=== PATIENT | male | born 1960 | race Two or more races ===

== ENCOUNTER 2017-03-08 23:12 | Emergency (ER) | payer SELFPAY ==
[2017-03-08 23:32] VITALS: RESP 16
--- NOTE | 2017-03-09 00:16 | ED PDOC ---
HPI: Psych/Substance Abuse Time Seen by Provider: 03/08/17 23:24 Chief Complaint (Nursing): Alcohol Ingestion Chief Complaint (Provider): Denies complaints - Brought by EMS for ETOh abuse History Per: Patient, EMS History/Exam Limitations: no limitations Onset/Duration Of Symptoms: Unknown Current Symptoms Are (Timing): Still Present Modifying Factor(s): Alcohol Additional Complaint(s): Pt denies complaints. Has slurred speech and states he wants to go homes. Denies head injury however large abrasion and swelling right forehead. Past Medical History Reviewed: Historical Data, Nursing Documentation, Vital Signs Vital Signs: Last Vital Signs Temp 98.0 F 03/08/17 23:30 Pulse 89 03/08/17 23:30 Resp 16 03/08/17 23:30 BP 139/81 03/08/17 23:30 Pulse Ox 97 03/08/17 23:30 - Medical History PMH: No Chronic Diseases - Surgical History Surgical History: No Surg Hx - Family History Family History: States: Unknown Family Hx - Living Arrangements Living Arrangements: With Family - Social History Current smoker - smoking cessation education provided: No Alcohol: Occasional Drugs: Denies - Allergies Allergies/Adverse Reactions: Allergies Allergy/AdvReac Type Severity Reaction Status Date / Time No Known Allergies Allergy Verified 03/08/17 23:32 Review of Systems ROS Statement: Except As Marked, All Systems Reviewed And Found Negative Skin: Positive for: Other Physical Exam - Reviewed Nursing Documentation Reviewed: Yes Vital Signs Reviewed: Yes - Physical Exam Appears: Positive for: Well, Non-toxic, No Acute Distress Head Exam: Positive for: ATRAUMATIC, NORMAL INSPECTION, NORMOCEPHALIC Skin: Positive for: Normal Color, Warm, DRY Eye Exam: Positive for: Normal appearance ENT: Positive for: Normal ENT Inspection Neck: Positive for: Normal, Painless ROM Cardiovascular/Chest: Positive for: Regular Rate, Rhythm Respiratory: Positive for: CNT, Normal Breath Sounds Gastrointestinal/Abdominal: Positive for: Normal Exam, Bowel Sounds, Soft Back: Positive for: Normal Inspection Extremity: Positive for: Normal ROM Neurologic/Psych: Positive for: Alert, Oriented - Laboratory Results Result Diagrams: 03/09/17 00:35 03/09/17 00:35 - ECG O2 Sat by Pulse Oximetry: 97 Medical Decision Making Medical Decision Making: Elevated wbc. Head CT normal. Disposition - Clinical Impression Clinical Impression: Alcohol abuse with intoxication - Patient ED Disposition Is Patient to be Admitted: Transfer of Care - Disposition Referrals: [facility] [Outside] Disposition: Transfer of Care Disposition Time: 06:03 Condition: GOOD
[2017-03-09 00:45] LABS: HEMATOCRIT 41.5 % (35.0-51.0); MEAN CELL VOLUME 94.1 fl (80.0-94.0); MEAN CORPUSCULAR HEMOGLOBIN 31.6 pg (27.0-31.0); MEAN CORPUSCULAR HGB CONC 33.6 g/dL (33.0-37.0); RED CELL DISTRIBUTION WIDTH 15.2 % (11.5-14.5); WHITE BLOOD COUNT 10.6 K/uL (4.8-10.8)
[2017-03-09 00:56] LABS: ALB/GLOB RATIO 1.4 (1.0-2.1); ALKALINE PHOSPHATASE 72 U/L (38-126); ALT/SGPT 42 U/L (21-72); AST/SGOT 43 U/L (17-59); BILIRUBIN,TOTAL 0.4 mg/dl (0.2-1.3); BLOOD UREA NITROGEN 8 mg/dl (9-20); CARBON DIOXIDE 20 mmol/L (22-30); CHLORIDE 110 mmol/L (98-107); GFR AFRICAN-AMERICAN > 60; GLUCOSE,RANDOM 97 mg/dL (75-110); POTASSIUM 3.8 MMOL/L (3.6-5.0); SODIUM 143 mmol/l (132-148); TOTAL PROTEIN 7.4 G/DL (6.3-8.2)
[2017-03-09 01:07] LABS: ALCOHOL SERUM 325 mg/dl (0-10)
--- NOTE | 2017-03-09 02:49 | CT ---
EXAM: CT Head Without Intravenous Contrast CLINICAL HISTORY: 56 years old, male; Pain; Other: ETOH; Additional info: Head injury, ETOH TECHNIQUE: Axial computed tomography images of the head/brain without intravenous contrast. This CT exam was performed using one or more of the following dose reduction techniques: automated exposure control, adjustment of the mA and/or kV according to patient size, and/or use of iterative reconstruction technique. Coronal and sagittal reformatted images were created and reviewed. COMPARISON: No relevant prior studies available. FINDINGS: Brain: Mild atrophy. No intracranial hemorrhage. No mass. No edema. Ventricles: No hydrocephalus. Bones/joints: No acute fracture. Soft tissues: RIGHT frontal soft tissue swelling. Sinuses: Mild mucosal thickening of RIGHT frontal sinus. Minimal mucosal thickening of LEFT ethmoid sinus. Mastoid air cells: No mastoid effusion. Orbits: Unremarkable as visualized. IMPRESSION: 1. No intracranial hemorrhage. 2. Incidental/non-acute findings are described above.
--- NOTE | 2017-03-09 06:20 | ED PDOC ---
- Laboratory Results Result Diagrams: 03/09/17 00:35 03/09/17 00:35 - ECG O2 Sat by Pulse Oximetry: 97 Medical Decision Making Medical Decision Makin: Pt. trasnferred to me by NORBERTO Sauceda. 0700: Patient is being transfered to Dr. Plaza pending sobriety. Scribe Attestation: Documented by Alexandra Londono acting as a scribe for Migue Wyatt MD. Provider Scribe Attestation: All medical record entries made by the Scribe were at my direction and personally dictated by me. I have reviewed the chart and agree that the record accurately reflects my personal performance of the history, physical exam, medical decision making, and the department course for this patient. I have also personally directed, reviewed, and agree with the discharge instructions and disposition. Disposition - Clinical Impression Clinical Impression: Alcohol abuse with intoxication - POA Present On Arrival: None - Disposition Referrals: [facility] [Outside] Disposition: Transfer of Care Disposition Time: 07:00 Condition: GOOD Patient Signed Over To: Pablo Plaza
[2017-03-09 06:41] VITALS: BP 131/71; PULSE 87; TEMP 98.1; O2SAT 96
--- NOTE | 2017-03-09 07:10 | ED PDOC ---
- Laboratory Results Result Diagrams: 03/09/17 00:35 03/09/17 00:35 - ECG O2 Sat by Pulse Oximetry: 96 (RA) Pulse Ox Interpretation: Normal Medical Decision Making Medical Decision Makin:00 Patient was signed out to me by Migue Wyatt MD pending clinical sobriety. Scribe Attestation: Documented by Isabel Chong, acting as a scribe for Pablo Plaza MD. Provider Scribe Attestation: All medical record entries made by the Scribe were at my direction and personally dictated by me. I have reviewed the chart and agree that the record accurately reflects my personal performance of the history, physical exam, medical decision making, and the department course for this patient. I have also personally directed, reviewed, and agree with the discharge instructions and disposition. Disposition - Clinical Impression Clinical Impression: Alcohol abuse with intoxication - POA Present On Arrival: None - Disposition Referrals: [facility] [Outside] Disposition: Routine/Home Disposition Time: 07:15 Condition: GOOD Instructions: Alcohol Intoxication (ED)
== END 2017-03-09 07:15 | disposition home or self-care (01) ==
LOC: H.ER 23:12 → EDBD 23:12 → H.ER 03-09 07:15
DX: F10.129 Alcohol abuse with intoxication, unspecified (principal); S00.81XA Abrasion of other part of head, initial encounter; W19.XXXA Unspecified fall, initial encounter; Y92.89 Other specified places as the place of occurrence of the external cause
CPT/HCPCS: 70450; 80053; 85027; 96372; 99283; G0480; J1630; J2060

== ENCOUNTER 2017-07-15 09:26 | Emergency (ER) | payer MEDICARE, OTHER ==
[2017-07-15 09:48] VITALS: BP 158/88; PULSE 92; RESP 19; TEMP 97; O2SAT 99
--- NOTE | 2017-07-15 10:27 | ED PDOC ---
HPI: Wound Care - HPI Time Seen by Provider: 07/15/17 10:25 Chief Complaint (Nursing): Suture/Staple Removal Chief Complaint (Provider): STAPLE REMOVAL History Per: Patient (56 Y/O MALE HERE FOR STAPLE REMOVAL. DENIES ANY COMPLAINTS.) Past Medical History Reviewed: Historical Data, Nursing Documentation, Vital Signs Vital Signs: Last Vital Signs Temp 97.0 F L 07/15/17 09:44 Pulse 92 H 07/15/17 09:44 Resp 19 07/15/17 09:44 BP 158/88 H 07/15/17 09:44 Pulse Ox 99 07/15/17 09:44 - Family History Family History: States: Unknown Family Hx - Home Medications Home Medications: Ambulatory Orders Medication Instructions Recorded No Known Home Med 07/15/17 - Allergies Allergies/Adverse Reactions: Allergies Allergy/AdvReac Type Severity Reaction Status Date / Time No Known Allergies Allergy Verified 03/08/17 23:32 Review of Systems ROS Statement: Except As Marked, All Systems Reviewed And Found Negative Physical Exam - Reviewed Nursing Documentation Reviewed: Yes Vital Signs Reviewed: Yes - Physical Exam Appears: Positive for: Well, Non-toxic, No Acute Distress Head Exam: Positive for: NORMAL INSPECTION, NORMOCEPHALIC. Negative for: ATRAUMATIC (STAPLE INTACT) Skin: Positive for: Normal Color, Warm, DRY Eye Exam: Positive for: EOMI, Normal appearance, PERRL ENT: Positive for: Normal ENT Inspection Neck: Positive for: Normal, Painless ROM Cardiovascular/Chest: Positive for: Regular Rate, Rhythm Respiratory: Positive for: CNT, Normal Breath Sounds Gastrointestinal/Abdominal: Positive for: Normal Exam, Bowel Sounds, Soft Back: Positive for: Normal Inspection Extremity: Positive for: Normal ROM Neurologic/Psych: Positive for: Alert, Oriented - ECG O2 Sat by Pulse Oximetry: 99 - Progress ED Course And Treament: STAPLE REMOVED WITHOUT DIFFICULTY Disposition - Clinical Impression Clinical Impression: Removal of staple - Patient ED Disposition Is Patient to be Admitted: No - Disposition Referrals: [facility] [Outside] Disposition: Routine/Home Disposition Time: 10:26 Condition: FAIR Instructions: Stitches Removal (ED) Forms: [employer] (Mauritian) Print Language: DOMINICAN
== END 2017-07-15 10:54 | disposition home or self-care (01) ==
LOC: H.ER 09:26
DX: Z48.02 Encounter for removal of sutures (principal)